=== PATIENT | female | born 1955 | race Caucasian/White ===

== ENCOUNTER 2023-11-27 14:11 | Outpatient (CLI) | payer BC | END 2023-11-27 14:12 | disposition home or self-care (01) | LOC: BICMAMMO 14:11 | PROVIDERS: ATTEND Family Medicine | DX: Z13.820 Encounter for screening for osteoporosis (principal); M85.852 Other specified disorders of bone density and structure, left thigh; Z78.0 Asymptomatic menopausal state | CPT/HCPCS: 77080 ==

== ENCOUNTER 2024-02-04 14:01 | Outpatient (CLI) | payer BC | END 2024-02-04 14:02 | disposition home or self-care (01) | LOC: BICCT 14:01 | PROVIDERS: ATTEND Internal Medicine Cardiovascular Disease | DX: R27.0 Ataxia, unspecified (principal); I67.2 Cerebral atherosclerosis | CPT/HCPCS: 70450 ==

== ENCOUNTER 2025-08-11 12:45 | Outpatient (CLI) | payer BC ==
[~2025-08-11 12:45] MED LIST: Iopamidol 370 76% 100 ML VIAL ONE
== END 2025-08-11 12:46 | disposition home or self-care (01) ==
LOC: CT 12:45
PROVIDERS: ATTEND Family Medicine
DX: I65.02 Occlusion and stenosis of left vertebral artery (principal)
CPT/HCPCS: 70498